=== PATIENT | male | born 1995 | race Hispanic/Latino ===

== ENCOUNTER 2023-09-16 22:28 | Emergency (ER) | payer BC, OTHER ==
[2023-09-16] MEDS ORDERED: ACETAMINOPHEN 500 MG TAB ONE (22:46)
[2023-09-16] MEDS ORDERED: IBUPROFEN 400 MG TAB ONE (22:46)
[2023-09-16] MEDS ORDERED: TDAP (DIPHTH,PERTUSS(ACELL),TET VAC) 0.5 ML VIAL IMVAC ONE (22:47)
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
[2023-09-17 00:45] VITALS: BP 122/78; TEMP 98.1; O2SAT 99
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
== END 2023-09-17 00:09 | disposition home or self-care (01) ==
LOC: ER 22:28
DX: S20.412A Abrasion of left back wall of thorax, initial encounter (principal); S20.411A Abrasion of right back wall of thorax, initial encounter; S80.212A Abrasion, left knee, initial encounter; S80.211A Abrasion, right knee, initial encounter; V49.49XA Driver injured in collision with other motor vehicles in traffic accident, initial encounter
CPT/HCPCS: 71045; 72170; 96372; 99285